=== PATIENT | female | born 1995 | race Caucasian/White ===

== ENCOUNTER 2016-08-06 11:39 | Emergency (ER) | payer BC ==
[~2016-08-06] VITALS: Ht 167.6 cm; Wt 67.9 kg
[2016-08-06 11:47] VITALS: Ht 167.6 cm; Wt 67.9 kg
[2016-08-06] MEDS ORDERED: BCPILLS PO (12:04)
[2016-08-06] MEDS ORDERED: ERYOPO OPL (12:21)
--- NOTE | 2016-08-06 12:22 | EMERGENCY ROOM VISIT NOTE ---
ED Visit Note First contact with patient: 11:54 CHIEF COMPLAINT: Irritated eyelid HISTORY OF PRESENT ILLNESS: This 20-year-old female presents to the emergency department ambulatory complaining of a small area of swelling to the lower eyelid that started 4 days ago. She states that Friday morning she woke up and noticed some crusting and the swelling had gone down. She states that Friday she noticed the small area of swelling again. She states that since then the swelling is completely gone and the drainage is completely gone. She states that what was once itchy now seems to be more painful.. Mild constant pain, irritating in nature, which is rated as 3/10. There is currently no discharge from the left eye and the lids are not crusted in the morning. No difficulty with vision. The patient does wear contacts. There is no known trauma to the eye. The patient has not had any other upper respiratory symptoms. The right eye is normal. The patient has used nothing. The patient does not have a foreign body sensation. No headache, rash, nausea or vomiting. REVIEW OF SYSTEMS: A 6 system review of systems was completed with positives and pertinent negatives in the HPI. ALLERGIES: No known drug allergies MEDICATIONS: See nursing notes PMH: Patient denies SOCIAL HISTORY: The patient is employed at the hospital PHYSICAL EXAM: Vital Signs: Reviewed Nurse's notes, Temperature 36.8. GENERAL: This is a 20-year-old female, in no acute distress, well-developed, well- nourished. SKIN: Warm, dry. No cyanosis. No petechia. EYES: Both pupils are equal round and reactive to light and accommodation, EOMs intact. There is no discharge in the left eye and no injection. There is no foreign body of the eyelid with lid eversion. No foreign body on the cornea, no hyphema. There is a small area to the left lateral lower lid which could represent a resolving chemosis or stye. EMERGENCY DEPARTMENT COURSE: I examined the patient. The patient has a small area of swelling to the left lower eyelid that has resolved. She does not have any signs of conjunctivitis. There is no significant periorbital erythema. She does not have pain with extraocular eye movement. She has not had fevers. The swelling has largely resolved. This may have represented a chemosis or a stye that has drained and is resolving. She will be given a prescription for erythromycin ointment. She should return in 24-48 hours if symptoms are not improving. She should follow-up with an eye doctor if symptoms persist or worsen. The patient was discharged home in good condition. Current/Historical Medications Scheduled Control Pills ( Control Pills), 1 TAB PO DAILY Erythromycin Opth (Erythromycin Opth), 1 APPLN OPL TID Allergies Coded Allergies: No Known Allergies (Unverified , 08/06/16) Vital Signs Date Time Temp Pulse Resp B/P Pulse Ox O2 Delivery O2 Flow Rate FiO2 08/06/16 12:30 36.8 68 18 125/71 98 08/06/16 11:47 36.8 70 16 121/68 96 Room Air Departure Information Impression Primary Impression: Stye Dispostion Home / Self-Care Condition GOOD Prescriptions Erythromycin Opth (ERYTHROMYCIN OPTH) 12 Appln/3.5 Gm Oint 1 APPLN OPL TID for 5 Days, #1 TUBE Prov: Roxanne Yates PA-C 08/06/16 Referrals No Doctor, Assigned (PCP) Matty Germain M.D. Patient Instructions JAMIL Loyd, Count Includes [facility] Additional Instructions Apply a 1/4 cm ribbon of erythromycin ointment to the left lower eyelid every 8 hours for 5 days Avoid eye makeup for the next 5 days Return with any fevers, worsening swelling, pain with movement of the eyes, redness surrounding the eyes Recheck with the family doctor or gambreler helper if symptoms persist Problem Qualifiers Primary Impression: Stye Laterality: left Eyelid: lower Qualified Codes: H00.015 - Hordeolum externum left lower eyelid
[2016-08-06 12:30] VITALS: BP 125/71; PULSE 68; TEMP 36.8; O2SAT 98
== END 2016-08-06 12:33 | disposition home or self-care (01) ==
LOC: C.EDB 11:40 → C.EDD 12:33
DX: H00.015 Hordeolum externum left lower eyelid (principal)

== ENCOUNTER 2016-12-12 08:49 | Emergency (ER) | payer BC ==
[~2016-12-12] VITALS: Ht 167.6 cm; Wt 62.6 kg
[~2016-12-12 08:49] MED LIST: BCPILLS PO; ERYOPO OPL
[2016-12-12 09:00] VITALS: TEMP 36.6; Ht 167.6 cm; Wt 62.6 kg
[2016-12-12] MEDS ORDERED: SODIUM CHLORIDE 0.9% 1000ML 1,000 ML IV STA (09:21)
--- NOTE | 2016-12-12 09:29 | EMERGENCY ROOM VISIT NOTE ---
History First contact with patient: 09:03 Chief Complaint: URINARY SYMPTOMS Stated Complaint: UTI SYMPTOMS, BACK PAIN BELLY/SIDE PAIN Nursing Triage Summary: Pt c/o burning and frequent urination and back pain that started yesterday "there is a lump under my right ribs and it hurts when I move it to the left" History of Present Illness The patient is a 21 year old female who presents to the Emergency Room with complaints of abdominal pain, flank pain and urinary tract symptoms. The patient states she has a history of recurrent UTI symptoms. She has had many urinalysis in the past which were all negative. She also had a scope which revealed a thinning bladder wall and she was placed on medication which did not seem to help. This was approximately 6 years ago. He states that daily she has urinary urgency, frequency and dysuria. She states that yesterday she noticed what she describes as a movable lump underneath the right ribs. She states she also developed pain in the right abdomen that is worse with walking. She denies any earache, sore throat, cough, fever. She denies any pain in her chest or trouble breathing. She denies any diarrhea. She is sexually active. She states that she regular sees her DESIGN CENTER CONSULTANT and has had regular screening for STD which have been negative. Review of Systems A 10 system review of systems was completed with positives and pertinent negatives listed in the HPI. Past Medical/Surgical History patient denies Social History Smoking Status: Current Every Day Smoker Housing Status: lives with family Current/Historical Medications Scheduled Metronidazole (Flagyl), 500 MG PO BID Sulfa/Trimethoprim (Bactrim Ds 800MG/160MG), 1 TAB PO BID Physical Exam Vital Signs Date Time Temp Pulse Resp B/P (MAP) Pulse Ox O2 Delivery O2 Flow Rate FiO2 12/12/16 14:18 75 18 106/61 98 12/12/16 13:14 74 18 105/64 100 Room Air 12/12/16 10:47 72 18 109/67 100 Room Air 12/12/16 09:00 36.6 83 18 114/77 100 Room Air Physical Exam VITALS: Vitals are noted on the nurse's note and reviewed by myself. Vital signs stable. The patient is afebrile. GENERAL: This is a 21-year-old female, in no acute distress, nondiaphoretic, well-developed well-nourished. SKIN: The skin was without rashes, erythema, edema, or bruising. There is no tenting of the skin. Capillary reflex less than 2 seconds. HEAD: Normocephalic atraumatic. EARS: The external ears are normal in appearance. EYES: Pupils equal round and reactive to light and accommodation. Conjunctivae without injection, sclerae without icterus. Extraocular movements intact. NOSE: Patent, turbinates without inflammation or discharge. MOUTH: Mucous membranes moist. Tonsils are not enlarged. Pharynx without erythema or exudate. Uvula midline. Airway patent. Tongue does not deviate. NECK: Supple without nuchal rigidity. No JVD. HEART: Regular rate and rhythm without murmurs gallops or rubs. LUNGS: Clear to auscultation bilaterally without wheezes, rales or rhonchi. No retractions or accessory muscle use. ABDOMEN: Positive bowel sounds x 4. Soft, moderate right lower quadrant tenderness, there is a faint palpable mass only with standing and engaging of the abdominal muscles noted in the right upper abdominal wall. Exam is without masses or organomegaly. Beck sign negative. : The external genitalia is normal in appearance. There is frothy white vaginal discharge. There is no cervicitis. There is no cervical motion tenderness. There is no adnexal mass or tenderness. A female emergency department equipment engineering technician was present for the examination. Pelvic cultures were obtained. MUSCULOSKELETAL: No muscle atrophy, erythema, or edema noted. Full range of motion in all extremities. Normal gait. Strength 5/5 throughout. NEURO: Patient was alert and oriented to person place and time. No focal neurological deficits. Medical Decision & Procedures ER Provider Diagnostic Interpretation: [~ rep ct add3]] ABD/PELVIS IV AND ORAL CONT HISTORY: 21 years-old Female acute right lower quadrant abdominal pain, right flank pain COMPARISON: None available TECHNIQUE: Multiple axial CT images of the abdomen and pelvis were obtained following the intravenous administration of 94 mL Optiray 320. Oral contrast was also used. A dose lowering technique was used consistent with the principals of ALARA. FINDINGS: There is minimal dependent bibasilar atelectasis. There is no pneumoperitoneum. The heart appears unremarkable. The gallbladder is contracted. There is a mild amount of periportal edema, likely related to hydration status. Liver otherwise appears unremarkable. The spleen, pancreas and adrenal glands are within normal limits. Bilateral kidneys, ureters and urinary bladder are unremarkable. Peripherally enhancing 1.9 x 1.4 cm structure of the left adnexum suggests involuting follicle. Note is made of a retroaortic course of the left renal vein. Abdominal aorta is normal in both course and caliber. There is no bulky adenopathy. There is no bowel obstruction. The appendix is contrast and air filled and noninflamed. The soft tissues are unremarkable. The bones are intact. There is sclerosis of the bilateral sacroiliac joints with mild erosions of the bilateral joints suggesting sacroiliitis. IMPRESSION: 1. No acute intra-abdominal or intrapelvic abnormality identified, specifically no evidence of acute appendicitis. 2. Peripherally enhancing 1.9 cm cystic structure of the left adnexum suggests involuting follicle. 3. Mild bilateral right greater than left asymmetric sacroiliitis. The above report was generated using voice recognition software. It may contain grammatical, syntax or spelling errors. Laboratory Results 12/12/16 09:30 Red Blood Count 4.39, Mean Corpuscular Volume 94.8, Mean Corpuscular Hemoglobin 32.1, Mean Corpuscular Hemoglobin Concent 33.9, Mean Platelet Volume 9.5, Neutrophils (%) (Auto) 69.9, Lymphocytes (%) (Auto) 23.8, Monocytes (%) (Auto) 5.0, Eosinophils (%) (Auto) 0.8, Basophils (%) (Auto) 0.4, Neutrophils # (Auto) 6.68, Lymphocytes # (Auto) 2.28, Monocytes # (Auto) 0.48, Eosinophils # (Auto) 0.08, Basophils # (Auto) 0.04 12/12/16 09:30 Test 12/12/16 09:10 12/12/16 09:30 12/12/16 13:48 Urine Color YELLOW Urine Appearance TURBID (CLEAR) Urine pH 6.0 (4.5-7.5) Urine Specific [place] 1.023 (1.000-1.030) Urine Protein NEG (NEG) Urine Glucose (UA) NEG (NEG) Urine Ketones NEG (NEG) Urine Occult Blood NEG (NEG) Urine Nitrite NEG (NEG) Urine Bilirubin NEG (NEG) Urine Urobilinogen NEG (NEG) Urine Leukocyte Esterase LARGE (NEG) Urine WBC (Auto) >30 /hpf (0-5) Urine RBC (Auto) 0-4 /hpf (0-4) Urine Hyaline Casts (Auto) 10-30 /lpf (0-5) Urine Epithelial Cells (Auto) >30 /lpf (0-5) Urine Bacteria (Auto) 2+ (NEG) Urine Test NEG (NEG) White Blood Count 9.57 K/uL (4.8-10.8) Red Blood Count 4.39 M/uL (4.2-5.4) Hemoglobin 14.1 g/dL (12.0-16.0) Hematocrit 41.6 % (37-47) Mean Corpuscular Volume 94.8 fL (80-100) Mean Corpuscular Hemoglobin 32.1 pg (25-34) Mean Corpuscular Hemoglobin Concent 33.9 g/dl (32-36) Platelet Count 328 K/uL (130-400) Mean Platelet Volume 9.5 fL (7.4-10.4) Neutrophils (%) (Auto) 69.9 % Lymphocytes (%) (Auto) 23.8 % Monocytes (%) (Auto) 5.0 % Eosinophils (%) (Auto) 0.8 % Basophils (%) (Auto) 0.4 % Neutrophils # (Auto) 6.68 K/uL (1.4-6.5) Lymphocytes # (Auto) 2.28 K/uL (1.2-3.4) Monocytes # (Auto) 0.48 K/uL (0.11-0.59) Eosinophils # (Auto) 0.08 K/uL (0-0.5) Basophils # (Auto) 0.04 K/uL (0-0.2) RDW Standard Deviation 41.3 fL (36.4-46.3) RDW Coefficient of Variation 12.1 % (11.5-14.5) Immature Granulocyte % (Auto) 0.1 % Immature Granulocyte # (Auto) 0.01 K/uL (0.00-0.02) Anion Gap 6.0 mmol/L (3-11) Est Creatinine Clear Calc Drug Dose 88.8 ml/min Estimated GFR () 101.1 Estimated GFR (Non- 87.2 BUN/Creatinine Ratio 13.1 (10-20) Calcium Level 8.9 mg/dl (8.5-10.1) Total Bilirubin 0.3 mg/dl (0.2-1) Aspartate Amino Transf (AST/SGOT) 14 U/L (15-37) Alanine Aminotransferase (ALT/SGPT) 22 U/L (12-78) Alkaline Phosphatase 83 U/L (45-117) Total Protein 7.0 gm/dl (6.4-8.2) Albumin 3.7 gm/dl (3.4-5.0) Globulin 3.3 gm/dl (2.5-4.0) Albumin/Globulin Ratio 1.1 (0.9-2) Lipase 224 U/L (73-393) Date/Time Source Procedure Growth Status 12/12/16 13:48 Vaginal Swab Trichomonas Preparation - Final Complete Medications Administered Medications (Trade) Dose Ordered Sig/Cynthia Route Start Time Stop Time Status Last Admin Dose Admin Sodium Chloride 1,000 ml @ 999 mls/hr Q1H1M STAT IV 12/12/16 09:21 12/12/16 10:21 DC 12/12/16 09:21 999 MLS/HR ED Course The patient was seen and examined. Previous visits were reviewed. The patient does not have a fever or leukocytosis. The patient does not have any significant anemia. There is no significant electrolyte abnormality. Urinalysis suggests urinary tract infection. Urine culture is pending. Pelvic cultures are pending. CT scan of the abdomen and pelvis was obtained as above. There appears to be an involuting follicle on the left. She does not have any adnexal pain or tenderness on the left. She does have sacroiliitis by imaging but does not complain of any consistent pain. She complains of dysuria, urgency, frequency. Urinalysis suggests urinary tract infection. She will be placed on Bactrim twice daily. Additionally, pelvic examination reveals a moderate amount of frothy white discharge. She will be placed on Flagyl for the possibility of bacterial vaginosis. The cultures are pending. She does not feel she is at risk for sex a transmitted infections. She should contact her family doctor and/or DESIGN CENTER CONSULTANT to schedule a follow-up appointment. She should return to the ER with any worsening symptoms. The case was discussed with Dr. Elkins who agrees with the assessment and treatment plan. Medical Decision DIFFERENTIAL DIAGNOSIS: Hepatitis, cholecystitis, cholangitis, biliary colic, pancreatitis, pneumonia, subdiaphragmatic abscess, appendicitis, inguinal hernia , nephrolithiasis, inflammatory bowel disease, mesenteric adenitis, peptic ulcer disease, GERD, gastritis, pancreatitis, myocardial infarction, pericarditis, ruptured aortic aneurysm, appendicitis, gastroenteritis, bowel obstruction, splenic infarct, diverticulitis, mesenteric ischemia, metabolic, peritonitis, Pelvic inflammatory disease, ovarian cyst, ovarian torsion, ovarian rupture, , ectopic , endometriosis, endometritis, urinary tract infection, ruptured ovarian cyst, tubo-ovarian abscess, among others. Medication Reconcilliation Current Medication List: was personally reviewed by me Blood Pressure Screening Patient's blood pressure: Normal blood pressure Blood pressure disposition: Did not require urgent referral Impression Primary Impression: Urinary tract infection Departure Information Dispostion Home / Self-Care Condition GOOD Prescriptions Sulfa/Trimethoprim (Bactrim Ds 800MG/160MG) Tab 1 TAB PO BID for 7 Days, #14 TAB Prov: Roxanne Yates PA-C 12/12/16 Metronidazole (Flagyl) 500 Mg Tab 500 MG PO BID for 7 Days, #14 TAB Prov: Roxanne Yates PA-C 12/12/16 Referrals No Doctor, Assigned (PCP) Patient Instructions [facility], UTI, Vaginal Infec Bacterial Vaginosis Additional Instructions Bactrim as prescribed, until finished for urinary tract infection Flagyl as prescribed, until finished for presumptive bacterial vaginosis. Do not drink alcohol when taking the Flagyl. You may contact the emergency department [phone] to check the results of the culture in 5-7 days Return with any worsening symptoms. Otherwise, follow up with your family doctor and DESIGN CENTER CONSULTANT. Problem Qualifiers Primary Impression: Urinary tract infection Urinary tract infection type: acute cystitis
[2016-12-12 09:41] LABS: URINE APPEARANCE TURBID (CLEAR); URINE BILIRUBIN NEG (NEG); URINE COLOR YELLOW; URINE EPITHELIAL CELL AUTO >30 /lpf (0-5); URINE NITRITE NEG (NEG); URINE SPECIFIC GRAVITY 1.023 (1.000-1.030); UROBILINOGEN NEG (NEG); ZZUR CULT IF INDIC CLEAN CATCH YES
[2016-12-12 09:42] LABS: MANUAL MICROSCOPIC REQUIRED? NO; REVIEW REQ? NO
[2016-12-12 09:45] LABS: BASO % 0.4 %; BASO ABS # 0.04 K/uL (0-0.2); COMPLETE YES; EOS % 0.8 %; HEMATOCRIT 41.6 % (37-47); IG% 0.1 %; LYMPH % 23.8 %; LYMPH ABS # 2.28 K/uL (1.2-3.4); MEAN CELL VOLUME 94.8 fL (80-100); MEAN CORPUSCULAR HEMOGLOBIN 32.1 pg (25-34); MEAN CORPUSCULAR HGB CONC 33.9 g/dl (32-36); MEAN PLATELET VOLUME 9.5 fL (7.4-10.4); NEUT % 69.9 %; PLATELET COUNT 328 K/uL (130-400); RED BLOOD COUNT 4.39 M/uL (4.2-5.4); WHITE BLOOD COUNT 9.57 K/uL (4.8-10.8)
[2016-12-12 10:01] LABS: BUN/CREATININE RATIO 13.1 (10-20); CALCIUM 8.9 mg/dl (8.5-10.1); CREATININE 0.93 mg/dl (0.60-1.20); POTASSIUM 3.4 mmol/L (3.5-5.1)
[2016-12-12 10:04] LABS: ALB/GLOB RATIO 1.1 (0.9-2)
[2016-12-12] MEDS ORDERED: OPTIRAY 320 IV PRN (13:15)
--- NOTE | 2016-12-12 13:23 | DIAGNOSTIC IMAGING REPORT ---
ABD/PELVIS IV AND ORAL CONT HISTORY: 21 years-old Female acute right lower quadrant abdominal pain, right flank pain COMPARISON: None available TECHNIQUE: Multiple axial CT images of the abdomen and pelvis were obtained following the intravenous administration of 94 mL Optiray 320. Oral contrast was also used. A dose lowering technique was used consistent with the principals of GERARDO. FINDINGS: There is minimal dependent bibasilar atelectasis. There is no pneumoperitoneum. The heart appears unremarkable. The gallbladder is contracted. There is a mild amount of periportal edema, likely related to hydration status. Liver otherwise appears unremarkable. The spleen, pancreas and adrenal glands are within normal limits. Bilateral kidneys, ureters and urinary bladder are unremarkable. Peripherally enhancing 1.9 x 1.4 cm structure of the left adnexum suggests involuting follicle. Note is made of a retroaortic course of the left renal vein. Abdominal aorta is normal in both course and caliber. There is no bulky adenopathy. There is no bowel obstruction. The appendix is contrast and air filled and noninflamed. The soft tissues are unremarkable. The bones are intact. There is sclerosis of the bilateral sacroiliac joints with mild erosions of the bilateral joints suggesting sacroiliitis. IMPRESSION: 1. No acute intra-abdominal or intrapelvic abnormality identified, specifically no evidence of acute appendicitis. 2. Peripherally enhancing 1.9 cm cystic structure of the left adnexum suggests involuting follicle. 3. Mild bilateral right greater than left asymmetric sacroiliitis. The above report was generated using voice recognition software. It may contain grammatical, syntax or spelling errors. Electronically signed by: Jatin Peña M.D. 12/12/2016 1:21 PM Dictated Date/Time: 12/12/2016 1:14 PM
[2016-12-12] MEDS ORDERED: SULF800T23 PO (14:08)
[2016-12-12] MEDS ORDERED: METR-163 PO (14:08)
[2016-12-12 14:18] VITALS: BP 106/61; PULSE 75; O2SAT 98
[2016-12-16 10:23] LABS: CHLAMYDIA TRACH RNA*** NOT DETECTED (NOT DETECTED); GC (NEIS GONORRHOEAE)RNA** NOT DETECTED (NOT DETECTED)
== END 2016-12-12 14:19 | disposition home or self-care (01) ==
LOC: C.EDB 08:52
DX: N39.0 Urinary tract infection, site not specified (principal); R10.9 Unspecified abdominal pain; F17.210 Nicotine dependence, cigarettes, uncomplicated

== ENCOUNTER 2017-05-03 17:47 | Emergency (ER) | payer BC, OTHER ==
[~2017-05-03] VITALS: Ht 167.6 cm; Wt 64.0 kg
[2017-05-03 18:04] VITALS: BP 127/74; PULSE 77; TEMP 37.1; O2SAT 98; Ht 167.6 cm; Wt 64.0 kg
--- NOTE | 2017-05-03 18:31 | EMERGENCY ROOM VISIT NOTE ---
ED Visit Note First contact with patient: 18:02 CHIEF COMPLAINT: Body Fluid exposure HPI: This 21-year-old female presents to the Emergency Department for evaluation of a body fluid exposure at work. The patient is a residential gas heat technician. She was drawing blood from the patient. She stuck herself with the needle after she gilberto the patient's blood.. The patient works at [employer]. They have had the hepatitis B. vaccination They believe their tetanus is up-to-date. ALLERGIES: No known drug allergies MEDICATIONS: Mirena PMH: Otherwise healthy SOCIAL HISTORY: Denies tobacco or EtOH use. She is a [employer] employee Physical Exam: VITALS: Nursing notes reviewed and vitals are stable. GENERAL: 21-year-old female, in no acute distress, well developed, well nourished. SKIN: Warm and dry with good turgor. No abrasions. There is a solitary puncture nikki present at the right fourth finger no active bleeding.Capillary refill is 2+. MUSCULOSKELETAL: Patient has full active range of motion of the right fourth finger. Normal strength. NEURO: Gross sensation is intact across the fingers. ED COURSE: I examined the patient. Option of HIV, hepatitis C, and hepatitis B testing was discussed with the patient. The risks, benefits, purpose, and limitations of the tests were explained to the patient and all of their questions were answered. They elected to proceed. I did perform pretest counseling and the appropriate consent forms were signed. Patient was given information on prevention of exposure and transmission as well as hospital confidentiality. Blood exposure handout was provided. The patient's blood was drawn. Risks and benefits of HIV prophylaxis were discussed with the patient. The patient elected to decline HIV prophylaxis at this time. They will follow -up with employee health. Wound care instructions were provided. The patient was discharged in stable condition. Impression: Body fluid exposure Plan: Follow up with employee health for further evaluation, treatment, and test results.
== END 2017-05-03 18:44 | disposition home or self-care (01) ==
LOC: C.EDB 17:48 → C.EDD 18:44
DX: Z77.21 Contact with and (suspected) exposure to potentially hazardous body fluids (principal)

== ENCOUNTER 2020-01-14 07:35 | Inpatient (IN) ==
[2020-01-14] MEDS ORDERED: OXYTOCIN 30 UNITS/500 ML BAG IV PRN ×3 (07:37→19:00)
[2020-01-14 08:02] LABS: Hematocrit (blood only) 37.3 % (37-47); Hemoglobin 12.8 g/dL (12.0-16.0); Mean Corpuscular Hemoglobin 32.2 pg (25-34); Mean Corpuscular Volume 93.7 fL (80-100); Mean Platelet Volume 10.3 fL (7.4-10.4); Platelet Count 304 K/uL (130-400); RDW Coefficient of Variation 13.3 % (11.5-14.5); RDW Standard Deviation 45.8 fL (36.4-46.3); Red Blood Count 3.98 M/uL (4.2-5.4); White Blood Count 9.31 K/uL (4.8-10.8)
[2020-01-14 08:04] LABS: Mean Corpuscular Hgb Conc 34.3 g/dL (32-36)
[2020-01-14] MEDS: LACTATED RINGER'S 1,000 ML IV PRN ×2 (08:20→09:15)
[2020-01-14] MEDS ORDERED: BUPIVACAINE 0.25% 30 ML VIAL ONE (08:24)
[2020-01-14] MEDS ORDERED: ePHEDrine sulfate 50 MG/ML AMP ONE ×2 (08:24→17:20)
[2020-01-14] MEDS ORDERED: fentaNYL citrate 100 MCG/2 ML VIAL ONE ×2 (08:25→17:03)
[2020-01-14] MEDS ORDERED: fentaNYL 2MCG/ML ROPIV 1.25MG/ML 100 ML BAG EPI ONE (08:25)
[2020-01-14] MEDS ORDERED: NALOXONE HCL 0.4 MG/1 ML VIAL/CARP IV PRN ×2 (08:53→17:39)
[2020-01-14] MEDS ORDERED: ePHEDrine sulfate 50 MG/ML AMP IV PRN ×2 (08:53→17:39)
[2020-01-14] MEDS ORDERED: ONDANSETRON INJ 2 MG/ML 2 ML VIAL IV PRN ×2 (08:53→17:39)
[2020-01-14] MEDS ORDERED: DiphenhydrAMINE HCL 50 MG/ML VIAL IV PRN ×2 (08:53→17:39)
[2020-01-14] MEDS ORDERED: fentaNYL 2MCG/ML ROPIV 1.25MG/ML 100 ML BAG EPI PRN (08:53)
[2020-01-14] MEDS ORDERED: NALOXONE HCL 1 MG in SODIUM CHLORIDE 0.9% 1000ML 1,000 ML IV PRN ×2 (08:53→17:39)
--- NOTE | 2020-01-14 08:53 | Anesthesiology Consultation ---
Date of Service January 14, 2020 Assessment & Plan (1) Encounter for pre-operative examination: Chart Review Chart Review: Patient NOT seen in Pre Admission Testing and Acceptable Risk for Labor Epidural Consults Requested none History Height/Weight Height: 5 ft 6 in Weight: 87.997 kg Allergies Allergy/AdvReac Type Severity Reaction Status Date / Time No Known Allergies Allergy Verified 01/14/20 08:03 Medications Home Medications Medication Instructions Recorded Confirmed Last Taken PNV cmb#95-ferrous fumarate-FA 1 tab PO DAILY 11/19/19 01/14/20 01/13/20 08:00 [] Active Medications Generic Name Dose Route Start Last Admin Trade Name Freq PRN Reason Stop Dose Admin Lactated Ringer's 1,000 mls @ 125 mls/hr 01/14/20 07:37 01/14/20 09:15 Lr IV 01/16/20 07:36 125 mls/hr .Q8H PRN Administration L&D Protocol Protocol Past Medical History Medical History Bladder infection Encounter for anatomic survey Hematuria No significant active problems Pelvic inflammatory disease Stye Urinary tract infection Varicella vaccine Exercise / Class Metabolic Activity II 4-5 Yardwork/Stairs/Walk up hill Past Family History Family History Grandfather (Paternal) Diabetes Mother Hypertension Aunt Breast cancer Past Surgical History Surgical History [place] teeth removed Past Anesthesia History No Hx of Anesthesia Complications and No Family Hx of Anesthesia Complications History of PONV No Hx of PONV and No Hx of Motion Sickness Social History Smoking Status: Former smoker tobacco type: cigarettes Hx Alcohol Use: No Hx Substance Use: No substance use type: does not use Physical Exam Vital Signs Last Vital Signs Temp 37.1 C 01/14/20 07:45 Pulse 73 01/14/20 09:16 Resp 20 01/14/20 07:45 BP 120/75 01/14/20 09:16 Pulse Ox 98 01/14/20 09:11 Testing Laboratory Results 01/14/20 07:46
--- NOTE | 2020-01-14 08:55 | History & Physical Report ---
Date of Service January 14, 2020 Assessment & Plan (1) : Elida Hightower is a 24 year old who presents to L&D at 39+1wga for elective schedule IOL. -Rh negative, RI, GBS neg, COVID screen neg -IOL with pitocin -epidural placed -AROM when indicated -anticipate -repeat CBC -monitor closely Admission and Anticipated Discharge Date Admission Date: January 14, 2020 History of Present Illness Chief Complaint: IOL Primary Care Provider: Tiana Camejo DO Elida Hightower is a 24 year old who presents to L&D for an elective scheduled induction of labor at 39+1wga. She has no chronic health conditions and takes no daily medications other than her daily vitamin. She has received appropriate care, and her has been uncomplicated. 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 Her first was LGA, born at 9lbs 7oz. Her pain control plan includes an epidural. She is Rh negative, rubella immune, GBS negative, and had a negative COVID screen on 01/04/2020. Allergies Allergy/AdvReac Type Severity Reaction Status Date / Time No Known Allergies Allergy Verified 01/14/20 08:03 Home Medications Home Medications Medication Instructions Recorded Confirmed Type PNV cmb#95-ferrous fumarate-FA 1 tab PO DAILY 11/19/19 01/14/20 History [] Past Med/Surg History Medical History Bladder infection Encounter for anatomic survey Hematuria No significant active problems Pelvic inflammatory disease Stye Urinary tract infection Varicella vaccine Surgical History [place] teeth removed Family History Grandfather (Paternal) Diabetes Mother Hypertension Aunt Breast cancer Social History Smoking Status: Former smoker Hx Alcohol Use: No Hx Substance Use: No Preferred Language: Upper Sorbian Communication Ability: Effective Turkish Line Attendant Required: No Beliefs That Will Affect Care: None marital status: Single marital status details: Seth Roger (30) [phone] Current Living Situation: Family Current Living Situation Comment: boyfriend and son Other Information That Helps Us Care for You: No Feels Safe at Home: Yes Safety Concerns: Feels Safe At This Time Review of Systems Constitutional: no fever and no chills Respiratory: no cough and no dyspnea Cardiovascular: no chest pain, no palpitations and no edema Gastrointestinal: no nausea, no vomiting, no constipation and no diarrhea/loose stools Genitourinary: no dysuria Physical Exam Constitutional: well nourished; no acute distress Respiratory: normal respiratory effort, lungs clear to auscultation Cardiovascular: Rate/Rhythm: regular rate and regular rhythm Heart Sounds: no murmur Extremities: no calf tenderness Gastrointestinal (Abdomen): normal gravid abdomen, nontender to palpation, soft, normoactive bowel sounds in all four quadrants Musculoskeletal: no calf tenderness to palpation bilaterally Results & Data Results & Data ([facility]) Vital Signs (Past 12 Hours) Vital Signs Temp Pulse Resp BP 01/14/20 07:45 37.1 C 20 01/14/20 07:41 82 121/79 Resident Activity Tracking Resident Involvement: Resident Care Provided Care Provided: OB Delivery (1) Weeks of gestation: 31 weeks Qualified Code(s): Z3A.31 - 31 weeks gestation of
--- NOTE | 2020-01-14 10:07 | Labor Progress Brief Note ---
Date of Service January 14, 2020 Subjective Comfortable with epidural. Assessment & Plan (1) Encounter for induction of labor: Admission and Anticipated Discharge Date Admission Date: January 14, 2020 Physical Exam Physical Exam: /-2 AROM clear FHT Cat 1 Pit @1 Results & Data ([facility]) Vital Signs (Past 12 Hours) Vital Signs Temp Pulse Resp BP Pulse Ox 01/14/20 10:02 70 121/72 01/14/20 10:01 71 97 01/14/20 09:56 74 97 01/14/20 09:51 77 96 01/14/20 09:48 77 123/63 01/14/20 09:46 84 96 01/14/20 09:41 86 98 01/14/20 09:36 80 96 01/14/20 09:32 96 H 127/79 01/14/20 09:31 92 H 97 01/14/20 09:26 83 126/73 97 01/14/20 09:24 76 125/74 01/14/20 09:22 71 123/72 01/14/20 09:21 80 97 01/14/20 09:20 76 124/72 01/14/20 09:18 73 122/70 01/14/20 09:16 82 120/75 97 01/14/20 09:14 77 122/83 01/14/20 09:11 84 134/85 98 01/14/20 09:06 81 99 01/14/20 09:02 85 128/82 01/14/20 09:01 85 99 01/14/20 07:45 98.8 F 20 01/14/20 07:41 82 121/79 Coding Level of Care Code None Diagnoses Encounter for induction of labor Z34.90
--- NOTE | 2020-01-14 16:46 | Delivery Summary ---
Vaginal Delivery Summary Date of Service January 14, 2020 Vaginal Delivery Summary DIAGNOSES: 1. Scott intrauterine at 39w1d gestation. 2. Induction of Labor (Elective, due to h/o prior LGA baby). 3. Group B Streptococcus Neg. PROCEDURE: Spontaneous vaginal delivery without laceration. SURGEON: Tiana Mcbride MD. DIETARY SERVICE AIDE: None. ESTIMATED BLOOD LOSS: 200 mL. COMPLICATIONS: None. PLACENTA: Spontaneous and intact with a 3-vessel cord. DISPOSITION: Stable to labor and delivery. DESCRIPTION: The patient pushed well and brought the head to in LOP position. The 's head was allowed to deliver with contraction force and no further active pushing, with the perineum protected during this time. The shoulders delivered easily with a maternal pushing effort. There was a loose nuchal cord. The right shoulder was anterior. The shoulders and body delivered without any difficulty, and the was placed on the maternal abdomen. It was vigorous and moving all extremities, and making respiratory efforts. The cord was doubly clamped by the MD and then cut by the FOB. The placenta delivered spontaneously and was noted to be intact and with a 3VC. The cervix, vagina and perineum were examined and were found to be without defect requiring repair. The fundus was firm and lochia minimal immediately after delivery. [facility] Vaginal Delivery Charge Vaginal Delivery Codes: 43903 global code for the antepartum, delivery, and post- Procedure Anesthesia type: Epidural Labor Stage Duration Labor - Stage 1 Duration: 0.81 Labor - Stage 2 Duration: 0.36
[2020-01-14] MEDS ORDERED: SODIUM CHLORIDE 0.9% 250 ML IV PRN ×2 (16:59→17:09)
[2020-01-14] MEDS ORDERED: NEOSTIGMINE METHYLSULFATE 5 MG/5 ML SYR ONE (17:20)
[2020-01-14] MEDS ORDERED: SUCCINYLCHOLINE CHLORIDE 20 MG/ML 10 ML VIAL IV ONE (17:20)
[2020-01-14] MEDS ORDERED: ROCURONIUM BROMIDE 10 MG/ML 5 ML VIAL IV ONE (17:20)
[2020-01-14] MEDS ORDERED: GLYCOPYRROLATE 0.2 MG/ML VIAL ONE (17:20)
[2020-01-14] MEDS ORDERED: PROPOFOL IV EMULSION 10 MG/ML 20 ML VIAL IV ONE (17:20)
[2020-01-14] MEDS ORDERED: TRANEXAMIC ACID / 0.7% NACL 1000MG/100ML BAG IV ONE (17:20)
[2020-01-14] MEDS ORDERED: MoRPHine SULFATE PF 1 MG/ML 10 ML AMP/VIAL ONE (17:36)
[2020-01-14] MEDS ORDERED: miSOPROStoL 200 MCG TAB ONE (17:37)
[2020-01-14] MEDS ORDERED: MoRPHine SULFATE 2 MG/ML CARP IV PRN (17:39)
[2020-01-14] MEDS ORDERED: HYDROmorphone INJ 1 MG/ML SYRINGE IV PRN (17:39)
[2020-01-14] MEDS ORDERED: NALOXONE HCL 0.08 MG in SYRINGE 1.8 ML IV PRN (17:39)
[2020-01-14] MEDS ORDERED: MoRPHine SULFATE PF 1 MG/ML 10 ML AMP/VIAL EPI ONE (17:39)
[2020-01-14] MEDS ORDERED: LACTATED RINGER'S 500 ML IV PRN (17:39)
[2020-01-14] MEDS ORDERED: SODIUM CHLORIDE 0.9% 1000ML 1,000 ML IV SCH (17:45)
[2020-01-14] MEDS ORDERED: DC INTRASPINAL MORPHINE SCH (17:45)
[2020-01-14] MEDS ORDERED: NO NARCOTICS OR SEDATIVES SCH (17:45)
[2020-01-14 17:51] LABS: Hemoglobin 10.3 g/dL (12.0-16.0); Mean Corpuscular Hemoglobin 31.4 pg (25-34); Mean Corpuscular Volume 94.5 fL (80-100); Mean Platelet Volume 10.1 fL (7.4-10.4); Platelet Count 331 K/uL (130-400); RDW Coefficient of Variation 13.4 % (11.5-14.5); RDW Standard Deviation 46.4 fL (36.4-46.3); Red Blood Count 3.28 M/uL (4.2-5.4); White Blood Count 16.16 K/uL (4.8-10.8)
[2020-01-14 18:00] LABS: Mean Corpuscular Hgb Conc 33.2 g/dL (32-36)
[2020-01-14 18:11] LABS: Fibrinogen 409 mg/dl (184-400); Partial Thromboplastin Ratio 0.9; Partial Thromboplastin Time 25.9 Seconds (21.0-31.0); Prothrombin Time 10.1 Seconds (9.0-12.0)
[2020-01-14 18:15] LABS: D Dimer 11810 ug/L FEU (0-500)
--- NOTE | 2020-01-14 18:18 | Operative Report ---
PG Post Operative Report Pre & Post Diagnosis Uterine Inversion following vaginal delivery I identified the patient and participated in the time-out.: Yes Procedure 1) EUA with attempted replacement of uterine inversion, unsuccessful 2) Exploratory laparotomy 3) Replacement of uterine inversion, successful 4) Placement of Bakri balloon 5) Closure of Laparotomy Surgeon Tiana Mcbride MD Shredded Filler Cutter Operator Rodrigo Estimated Blood Loss 1,000 (In addition to 200 at delivery plus 1295 PPH (weighed chux in L&D)) Findings See Below Specimens None Drains Dowell, Bakri Anesthesia Type General Complications none Disposition Accompanied Patient To Recovery: Yes Disposition: L&D Description of Procedure Shortly after departing from the patient's room following an uncomplicated vaginal delivery, I was called by Miguel Tineo to notify me that AuryИрина Bronson was asking for me to return to the room. She was not sure of the reason but said she assumed it was due to bleeding. I immediately went to LD4 and on arrival found 2 full chux of blood clot and a 3rd chux under the patient with aggressive bleeding from the vagina. I sterile gloved and performed a bimanual exam which immediately revealed a uterine inversion. The inversion was severe and the amount of inverted fundus in the vagina was large enough that I could only palpate the cervix by reaching up around it on one side or the other. With the patient's permission I did attempt to push the fundus upward through the cervix, but this was unsuccessful, and the cervix remained firmly closed preventing any movement. I quickly explained to the patient and FOB the diagnosis of inversion and the need for move to operating room for anesthesia, relaxants that would hopefully allow replacement, or surgical management up to and including hysterectomy if no other methods were successful. They gave verbal consent. A second IV site was established while I was speaking with them and T&C was established along with stat H&H. I contacted Dr. Wallace who arrived quickly from the office to provide assistance. Anesthesia arrived quickly and we moved Elida to the OR where general anesthesia was established. She was prepped with betadine vaginally and as soon as she was comfortably asleep, another attempt was made to replace the uterus. This again resulted in little to no movement due to very firm muscle tone in the cervix and fundus. Nitrous oxide blended with inhaled oxygen and 50mcg IV nitroglycerin were both employed as relaxants, and Dr. Wallace and I each attempted vaginal replacement of the uterus with some upward movement now happening, but we were not able to complete replacement. Decision was made to begin an exploratory laparotomy and after prep and drape a Pfannensteil incision was made and carried to the fascia which was nicked, then bluntly extended; the midline of the rectus was naturally and the peritoneum was bluntly entered. The uterus was immediately seen to be deeply inverted, with the ovaries drawn together in the midline going downwards into the cavity where the fundus turned downwards. Remaining sterile gloved, Dr. Wallace applied upward pressure from the vaginal approach while an allis clamp was used to reach into the inversion and apply upwards lift to the fundus. Gradually this was successful in returning the fundus to its normal anatomical position. Immediately, tone in the fundus began to firm again. Bovie was used to achieve hemostasis at the allis clamp site where shallow abrasions had resulted. A Bakri was placed via the vagina and inflated to 450cc sterile water. The uterus was replaced, and the incision was closed in the usual manner. 1-vicryl was used in running nonlocked fashion to close the fascia, 3-0 chromic to close the subcutaneous tissue, and 4-0 monocryl to close the skin in a subcuticular manner. A telfa/ABD/Medipore dressing was applied. X-ray was done due to lack of preoperative instrument count and was clear. The patient was then transported to her recovery room in good condition. I attest to the content of the Intraoperative Record and any orders documented therein. Any exceptions are noted below.
--- NOTE | 2020-01-14 18:23 | XRay Report ---
KUB CLINICAL HISTORY: no count done prior to surgery COMPARISON STUDY: CT of the abdomen and pelvis December 12, 2016. FINDINGS: Epidural catheter is noted. Soft tissue density projecting over the lower abdomen and pelvi s is due to an enlarged uterus. No unexpected radiopaque foreign bodies are identified. Dowell cathete r is noted. IMPRESSION: No unexpected radiopaque foreign bodies. ACT 112: Negative or not required by law. Electronically signed by: Mushtaq Araujo M.D. 01/14/2020 6:21 PM
[2020-01-14] MEDS ORDERED: ONDANSETRON INJ 2 MG/ML 2 ML VIAL ONE (18:24)
[2020-01-14] MEDS ORDERED: PHENYLEPHRINE 100MCG/ML 5ML SYR ONE (18:24)
[2020-01-14] MEDS ORDERED: AMPICILLIN/SULBACTAM SOD 3,000 MG in 0.9 % SODIUM CHLORIDE 100 ML IV ONE (18:30)
[2020-01-14] MEDS ORDERED: IBUPROFEN 600 MG TAB PO PRN (19:00)
[2020-01-14] MEDS ORDERED: BENZOCAINE 20% AER SPR 82.5 GM CAN EXT PRN (19:00)
[2020-01-14] MEDS ORDERED: DIPHTHERIA/TETANUS/PERTUSSIS 0.5 ML SYR/VIAL IM ONE (19:00)
[2020-01-14] MEDS ORDERED: ACETAMINOPHEN 325 MG TAB PO PRN (19:00)
[2020-01-14] MEDS ORDERED: SUPERCREAM 0.870% 15 GM JAR EXT PRN (19:00)
[2020-01-14] MEDS ORDERED: HYDROCORTISONE ACETATE 25 MG SUPP PR PRN (19:00)
--- NOTE | 2020-01-14 19:08 | Anesthesiology Progress Note ---
Date of Service January 14, 2020 Anesthesia Post Procedure Vital Signs Vital Signs: Temp Pulse Resp BP Pulse Ox 01/14/20 19:05 75 100 01/14/20 19:00 70 100 01/14/20 18:55 78 153/84 H 100 01/14/20 18:50 95 H 100 01/14/20 18:45 74 100 01/14/20 18:40 75 100 01/14/20 18:38 72 136/77 90 01/14/20 18:35 80 100 01/14/20 18:30 78 100 01/14/20 18:29 80 139/70 01/14/20 18:28 88 88 L 01/14/20 18:25 100 H 100 01/14/20 18:20 87 100 01/14/20 18:18 93 H 120/59 L 01/14/20 18:15 96 H 100 01/14/20 18:10 116 H 100 01/14/20 16:47 102 H 152/65 H 01/14/20 16:36 82 98 01/14/20 16:33 75 125/63 01/14/20 16:31 78 98 01/14/20 16:26 145 H 97 01/14/20 16:21 100 H 98 01/14/20 16:19 67 125/58 L 01/14/20 16:16 105 H 99 01/14/20 16:11 79 99 01/14/20 16:06 69 99 01/14/20 16:04 80 130/87 01/14/20 16:01 74 99 01/14/20 16:00 20 01/14/20 15:56 75 100 01/14/20 15:51 81 100 01/14/20 15:48 84 136/89 01/14/20 15:46 68 100 01/14/20 15:41 67 100 01/14/20 15:36 76 98 01/14/20 15:33 66 128/56 L 01/14/20 15:31 71 98 01/14/20 15:30 18 01/14/20 15:26 75 93 01/14/20 15:21 65 99 01/14/20 15:17 73 119/69 01/14/20 15:16 81 98 01/14/20 15:15 36.8 C 80 20 92 01/14/20 15:11 72 99 01/14/20 15:06 77 99 01/14/20 15:02 84 20 114/65 01/14/20 15:01 78 100 01/14/20 14:56 77 99 01/14/20 14:51 80 99 01/14/20 14:47 75 117/73 01/14/20 14:46 80 99 01/14/20 14:45 77 93 01/14/20 14:41 76 100 01/14/20 14:36 77 97 01/14/20 14:33 73 117/67 01/14/20 14:31 71 20 99 01/14/20 14:28 95 H 87 L 01/14/20 14:26 72 97 01/14/20 14:21 77 98 01/14/20 14:17 83 123/76 01/14/20 14:16 78 98 01/14/20 14:11 75 98 01/14/20 14:06 71 97 01/14/20 14:02 75 121/67 01/14/20 14:01 74 97 01/14/20 14:00 20 01/14/20 13:56 72 97 01/14/20 13:51 70 97 01/14/20 13:47 73 118/71 01/14/20 13:46 70 96 01/14/20 13:41 72 97 01/14/20 13:36 71 97 01/14/20 13:34 67 118/71 01/14/20 13:31 74 97 01/14/20 13:30 20 01/14/20 13:26 75 97 01/14/20 13:21 74 97 01/14/20 13:18 70 113/70 01/14/20 13:16 72 96 01/14/20 13:11 76 97 01/14/20 13:10 36.9 C 20 01/14/20 13:06 80 98 01/14/20 13:03 83 132/84 01/14/20 13:01 78 97 01/14/20 12:56 66 97 01/14/20 12:51 75 98 01/14/20 12:47 64 110/57 L 01/14/20 12:46 68 98 01/14/20 12:41 70 96 01/14/20 12:40 20 01/14/20 12:36 65 98 01/14/20 12:32 66 114/64 01/14/20 12:31 68 96 01/14/20 12:26 66 97 01/14/20 12:25 20 01/14/20 12:21 64 97 01/14/20 12:19 63 117/57 L 01/14/20 12:16 65 97 01/14/20 12:11 69 97 01/14/20 12:10 20 01/14/20 12:06 69 98 01/14/20 12:03 70 122/61 01/14/20 12:01 66 98 01/14/20 11:56 73 97 01/14/20 11:55 20 01/14/20 11:51 67 97 01/14/20 11:48 63 125/73 01/14/20 11:46 66 97 01/14/20 11:41 80 97 01/14/20 11:40 20 01/14/20 11:37 75 94 01/14/20 11:36 72 95 01/14/20 11:32 71 125/78 01/14/20 11:31 75 97 01/14/20 11:26 76 96 01/14/20 11:25 20 01/14/20 11:21 72 96 01/14/20 11:17 73 114/75 01/14/20 11:16 74 95 01/14/20 11:11 74 96 01/14/20 11:10 36.8 C 20 01/14/20 11:06 83 97 01/14/20 11:03 72 128/78 01/14/20 11:01 73 95 01/14/20 10:56 76 96 01/14/20 10:55 20 01/14/20 10:51 81 95 01/14/20 10:48 75 114/78 01/14/20 10:46 78 97 01/14/20 10:41 83 97 01/14/20 10:40 20 01/14/20 10:36 74 96 01/14/20 10:33 69 125/70 01/14/20 10:31 73 96 01/14/20 10:26 76 96 01/14/20 10:25 20 01/14/20 10:21 77 96 01/14/20 10:18 77 112/65 01/14/20 10:16 78 96 01/14/20 10:11 71 97 01/14/20 10:10 37.0 C 01/14/20 10:06 68 98 01/14/20 10:02 70 121/72 01/14/20 10:01 71 97 01/14/20 09:56 74 97 01/14/20 09:55 20 01/14/20 09:51 77 96 01/14/20 09:48 77 123/63 01/14/20 09:46 84 96 01/14/20 09:41 86 98 01/14/20 09:40 20 01/14/20 09:36 80 96 01/14/20 09:32 96 H 127/79 01/14/20 09:31 92 H 97 01/14/20 09:26 83 126/73 97 01/14/20 09:25 20 01/14/20 09:24 76 125/74 01/14/20 09:22 71 123/72 01/14/20 09:21 80 97 01/14/20 09:20 76 124/72 01/14/20 09:18 73 122/70 01/14/20 09:16 82 120/75 97 01/14/20 09:14 77 122/83 01/14/20 09:11 84 134/85 98 01/14/20 09:06 81 99 01/14/20 09:02 85 128/82 01/14/20 09:01 85 99 01/14/20 07:45 37.1 C 01/14/20 07:41 82 121/79 Transfer of Care Handoff Completed per policy Notes Mental Status: alert / awake / arousable and participated in evaluation Patient Amnestic to Procedure: Yes Nausea / Vomiting: adequately controlled Pain: adequately controlled Airway Patency, RR, SpO2: stable & adequate BP & HR: stable & adequate Hydration State: stable & adequate Anesthetic Complications: no major complications apparent and Pt Satisfied with anesthetic care
--- NOTE | 2020-01-14 19:09 | Anesthesia Procedure Note ---
Date of Service January 14, 2020 Anesthesia Post Epidural Note Vital Signs Vital Signs: Temp Pulse Resp BP Pulse Ox 36.8 C 75 20 153/84 H 100 01/14/20 15:15 01/14/20 19:05 01/14/20 16:00 01/14/20 18:55 01/14/20 19:05 Notes Mental Status: alert / awake / arousable and participated in evaluation Patient Amnestic to Procedure: No Nausea / Vomiting: adequately controlled Pain: adequately controlled Airway Patency, RR, SpO2: stable & adequate BP & HR: stable & adequate Hydration State: stable & adequate Neuraxial Anesthesia: was administered and sensory block resolved Anesthetic Complications: no major complications apparent and Pt Satisfied with anesthetic care Epidural: Removed without complications and With tip intact
[2020-01-14] MEDS: LACTATED RINGER'S 1,000 ML IV SCH (19:20)
[2020-01-14] MEDS ORDERED: KETOROLAC 30 MG/ML VIAL ONE (19:23)
[2020-01-14] MEDS ORDERED: KETOROLAC 30 MG/ML VIAL IV PRN (19:35)
[2020-01-14] MEDS ORDERED: MEPERIDINE HCL 25 MG/ML CARP/VIAL IV PRN (19:36)
[2020-01-14] MEDS: DOCUSATE SODIUM 100 MG CAP PO SCH (21:11)
[2020-01-14] MEDS: AMPICILLIN/SULBACTAM SOD 1,500 MG in 0.9 % SODIUM CHLORIDE 100 ML IV SCH (23:51)
[2020-01-15] MEDS: LACTATED RINGER'S 1,000 ML IV SCH ×2 (03:57→11:16)
[2020-01-15] MEDS: AMPICILLIN/SULBACTAM SOD 1,500 MG in 0.9 % SODIUM CHLORIDE 100 ML IV SCH ×3 (05:48→17:30)
--- NOTE | 2020-01-15 06:34 | Obstetrical Progress Note ---
Date of Service <Marcus Leonard MD - Last Filed: 01/15/20 07:39> January 15, 2020 Assessment & Plan <Marcus Leonard MD - Last Filed: 01/15/20 07:39> (1) Encounter for induction of labor: Elida Hightower is a 24yo who presented to L&D for scheduled IOL at 39+1 complicated by PPH of 2,000mL and uterine inversion with subsequent laparoscopic repair. -POD#1: feeling well, no pain, no BM yet, andino will remain in place until Bakri balloon and packing are removed -Rh neg, RI, GBS neg, COVID neg -s/p 2u pRBC -blood pressures slightly soft; receiving LR @ 125mL/hr -c/w unasyn 1500mg in NaCl 104mL @ 200mL/hr IV q6h -c/w oxytocin 30u q90min PRN -c/w hydromorphone 0.25mg IV q4h PRN -c/w meperedine 12.5mg IV q15min PRN -c/w morphine 2mg q2h PRN -c/w naloxone 0.1mg ud PRN -c/w PNV qd -advance diet as tolerated -CBC qAM -120mL removed from Bakri balloon during rounds; continue reducing balloon volume throughout the day as tolerated -close clinical monitoring Subjective <Marcus Leonard MD - Last Filed: 01/15/20 07:39> Voiding: andino catheter in place Feeding Type:: bottle feeding Current Pain Level(1-10): 0 Patient endorses no pain at the moment, has not been out of bed yet, not passing gas or had a BM yet. Constitutional: no fever and no chills Respiratory: no cough and no dyspnea Cardiovascular: no chest pain, no palpitations and no edema Gastrointestinal: no nausea and no vomiting Physical Exam <Marcus Leonard MD - Last Filed: 01/15/20 07:39> Constitutional no acute distress Respiratory normal respiratory effort, lungs clear to auscultation Cardiovascular Rate/Rhythm: regular rate and regular rhythm Heart Sounds: no murmur Extremities: no calf tenderness Gastrointestinal (Abdomen) Abdomen soft, appropriately tender, hypoactive BS x 4 quadrants, incision C/D/I Musculoskeletal Negative Jonathan's sign bilaterally; SCD's in place Results & Data ([facility]) <Marcus Leonard MD - Last Filed: 01/15/20 07:39> Vital Signs (Past 12 Hours) Vital Signs Temp Pulse Resp BP Pulse Ox 01/15/20 06:20 95 H 100 01/15/20 06:15 82 96 01/15/20 06:10 89 96 01/15/20 06:05 97 H 97 01/15/20 06:00 93 H 97 01/15/20 05:55 89 97 01/15/20 05:50 37.1 C 91 H 18 116/50 L 97 01/15/20 05:45 98 H 97 01/15/20 05:40 84 97 01/15/20 05:35 100 H 97 01/15/20 05:30 87 96 01/15/20 05:25 106 H 97 01/15/20 05:20 92 H 97 01/15/20 05:15 90 99 01/15/20 05:10 89 98 01/15/20 05:05 87 97 01/15/20 05:00 89 98 01/15/20 04:55 92 H 97 01/15/20 04:50 98 H 99 01/15/20 04:45 87 99 01/15/20 04:40 79 100 01/15/20 04:35 101 H 99 01/15/20 04:30 88 99 01/15/20 04:25 81 99 01/15/20 04:20 87 109/58 L 99 01/15/20 04:15 82 96 01/15/20 04:10 79 97 01/15/20 04:05 76 99 01/15/20 04:00 36.8 C 90 18 98 01/15/20 03:55 99 H 99 01/15/20 03:50 86 98 01/15/20 03:45 79 96 01/15/20 03:40 80 96 01/15/20 03:35 76 95 01/15/20 03:30 77 95 01/15/20 03:25 93 H 98 01/15/20 03:20 78 96 01/15/20 03:15 78 96 01/15/20 03:10 76 96 01/15/20 03:05 75 96 01/15/20 03:00 80 97 01/15/20 02:55 77 97 01/15/20 02:50 77 97 01/15/20 02:45 80 98 01/15/20 02:40 92 H 99 01/15/20 02:38 84 103/51 L 01/15/20 02:35 77 96 01/15/20 02:30 79 97 01/15/20 02:25 75 96 01/15/20 02:20 79 96 01/15/20 02:15 76 96 01/15/20 02:10 78 96 01/15/20 02:05 76 96 01/15/20 02:00 78 96 01/15/20 01:55 85 98 01/15/20 01:50 75 96 01/15/20 01:45 78 97 01/15/20 01:40 89 96 01/15/20 01:35 81 96 01/15/20 01:30 78 96 01/15/20 01:25 76 96 01/15/20 01:20 82 96 01/15/20 01:15 83 97 01/15/20 01:10 89 96 01/15/20 01:05 82 96 01/15/20 01:00 92 H 97 01/15/20 00:55 79 96 01/15/20 00:50 85 97 01/15/20 00:45 101 H 97 01/15/20 00:40 90 97 01/15/20 00:35 94 H 97 01/15/20 00:30 83 99 01/15/20 00:25 84 97 01/15/20 00:20 75 98 01/15/20 00:15 81 98 01/15/20 00:10 99 H 98 01/15/20 00:05 78 98 01/15/20 00:00 85 98 01/14/20 23:55 83 100 01/14/20 23:50 78 98 01/14/20 23:45 85 98 01/14/20 23:44 83 119/60 01/14/20 23:40 78 97 01/14/20 23:35 75 99 01/14/20 23:30 76 120/66 98 01/14/20 23:25 96 H 100 01/14/20 23:20 78 98 01/14/20 23:15 82 100 01/14/20 23:10 103 H 99 01/14/20 23:05 86 100 01/14/20 23:00 37.0 C 73 16 97 01/14/20 22:55 87 99 01/14/20 22:50 73 98 01/14/20 22:45 83 98 01/14/20 22:40 75 99 01/14/20 22:35 73 98 01/14/20 22:30 82 99 01/14/20 22:25 83 100 01/14/20 22:20 76 99 01/14/20 22:15 99 H 99 01/14/20 22:11 78 120/66 01/14/20 22:10 78 100 01/14/20 22:05 108 H 100 01/14/20 22:00 104 H 99 01/14/20 21:55 108 H 98 01/14/20 21:50 87 99 01/14/20 21:45 90 99 01/14/20 21:41 111 H 136/65 01/14/20 21:40 116 H 99 01/14/20 21:35 88 100 01/14/20 21:30 96 H 100 01/14/20 21:25 111 H 99 01/14/20 21:20 90 100 01/14/20 21:15 87 99 01/14/20 21:11 85 127/79 01/14/20 21:10 82 98 01/14/20 21:05 87 98 01/14/20 21:00 36.5 C 114 H 20 99 01/14/20 20:55 94 H 100 01/14/20 20:50 85 98 01/14/20 20:45 111 H 99 01/14/20 20:42 122 H 130/63 01/14/20 20:40 119 H 100 01/14/20 20:35 118 H 100 01/14/20 20:33 36.5 C 118 H 18 131/87 100 01/14/20 20:30 112 H 99 01/14/20 20:25 80 131/87 99 01/14/20 20:20 83 99 01/14/20 20:15 91 H 99 01/14/20 20:13 36.5 C 77 18 140/80 100 01/14/20 20:10 80 140/80 98 01/14/20 20:08 36.5 C 20 01/14/20 20:05 81 100 01/14/20 20:00 87 99 01/14/20 19:57 36.5 C 92 H 16 135/73 100 01/14/20 19:55 85 135/73 99 01/14/20 19:50 126 H 100 01/14/20 19:45 82 18 100 01/14/20 19:42 36.5 C 81 20 146/70 H 100 01/14/20 19:40 126 H 100 01/14/20 19:35 90 100 01/14/20 19:30 89 100 01/14/20 19:27 36.5 C 73 18 132/78 100 01/14/20 19:25 73 22 132/78 100 01/14/20 19:20 76 100 01/14/20 19:15 92 H 18 149/73 H 01/14/20 19:13 36.5 C 73 20 149/73 H 100 01/14/20 19:11 82 146/67 H 01/14/20 19:10 96 H 01/14/20 19:05 75 20 100 01/14/20 19:00 70 01/14/20 18:55 78 18 153/84 H 100 01/14/20 18:50 95 H 100 01/14/20 18:45 74 100 01/14/20 18:40 75 100 01/14/20 18:38 36.5 C 72 22 136/77 01/14/20 18:35 80 100 01/14/20 18:30 78 100 01/14/20 18:29 80 139/70 01/14/20 18:28 88 88 L 01/14/20 18:25 100 H 100 <Tiana Mcbride MD - Last Filed: 01/15/20 06:53> Co-Signing Physician Notes I have reviewed the resident's note and examined the patient myself, and agree with the note above. PPD#1 and POD#1 from exploratory laparotomy (not laparoscopy as stated in PGY note) for replacement of uterine inversion and treatment for signifcant PPH with 2u RBC. Hemoglobin pending this morning but patient feeling well and pain managed. Bottle feeding. Resident Activity Tracking <Marcus Leonard MD - Last Filed: 01/15/20 07:39> Resident Involvement: Resident Care Provided Care Provided: OB Delivery
[2020-01-15 06:52] LABS: Hematocrit (blood only) 29.5 % (37-47); Mean Corpuscular Hemoglobin 31.1 pg (25-34); Mean Corpuscular Hgb Conc 33.9 g/dL (32-36); Mean Corpuscular Volume 91.6 fL (80-100); Mean Platelet Volume 10.2 fL (7.4-10.4); Platelet Count 254 K/uL (130-400); RDW Coefficient of Variation 14.3 % (11.5-14.5); Red Blood Count 3.22 M/uL (4.2-5.4); White Blood Count 15.65 K/uL (4.8-10.8)
[2020-01-15] MEDS: DOCUSATE SODIUM 100 MG CAP PO SCH ×2 (09:16→21:35)
[2020-01-15] MEDS: PRENATAL VITAMIN 1 TAB PO SCH (09:16)
[2020-01-15] MEDS ORDERED: MEPERIDINE HCL 25 MG/ML CARP/VIAL IV PRN (11:39)
[2020-01-15] MEDS ORDERED: KETOROLAC 30 MG/ML VIAL IV PRN (11:40)
[2020-01-15] MEDS: OXYCODONE/ACETAMINOPHEN 5mg/325mg TAB PO PRN (16:15)
[2020-01-16 06:17] LABS: Hematocrit (blood only) 27.8 % (37-47); Hemoglobin 9.4 g/dL (12.0-16.0)
[2020-01-16] MEDS: DOCUSATE SODIUM 100 MG CAP PO SCH (09:00)
[2020-01-16] MEDS: PRENATAL VITAMIN 1 TAB PO SCH (09:00)
--- NOTE | 2020-01-16 09:08 | Obstetrical Progress Note ---
Date of Service January 16, 2020 Assessment & Plan (1) Supervision of normal intrauterine in multigravida: 24yo PPD 2 from followed by laparotomy for uterine inversion. Doing well. Meeting all post operative goals. H/H stable at 9.4/27.8. Patient requesting discharge today. Subjective Ambulation: ambulating normally Voiding: no voiding problems Passing Gas:: Yes Diet Tolerance:: regular diet Lochia:: Moderate Feeding Type:: breast feeding Physical Exam Constitutional WD/WN, vitals as above Respiratory normal respiratory effort; no respiratory distress and no labored breathing Gastrointestinal (Abdomen) Inspection/Auscultation: abdomen normal to inspection; abdomen not distended Percussion/Palpation: abdomen soft; abdomen nontender, no guarding and abdomen not rigid Incision clean, dry and intact Genitourinary OB Exam Abdomen: + fundal height Fundus: + firm and + relation to umbilicus (Below); not tender and not boggy Results & Data ([facility]) Vital Signs (Past 12 Hours) Vital Signs Temp Pulse Resp BP Pulse Ox 01/16/20 08:10 36.7 C 79 20 128/77 98 01/16/20 00:30 36.7 C 79 16 112/71 97
[2020-01-16] MEDS: OXYCODONE/ACETAMINOPHEN 5mg/325mg TAB PO PRN (10:05)
== END 2020-01-16 13:00 | disposition home or self-care (01) | DRG 806 ==
LOC: 4S1 07:35 → 4S2 01-15 13:55
PROC: M.EUALD (2020-01-14 17:00)